=== PATIENT | female | born 1960 | race Caucasian/White ===

== ENCOUNTER → 2017-03-23 | Outpatient (CLI) | payer MEDICARE, OTHER ==
[~2017-03-23] MED LIST: ALPRAZOLAM1 MG PO; AMOXICILLIN500 M1 PO; AUGMENTIN PO; CELEBREX PO; CELEBREX100 MG PO; CLARITIN10 M2 PO; CYMBALTA; DILAUDID2 MG PO; FLEXERIL PO; FLEXERIL10 MG PO; HUMIRA40 MG/0.1 SQ; HYDROCODON-ACE1 EAC5 PO; ILOTYCIN1 GM OS; LEVOXYL50 MC1 PO; LORCET 10/650 T1 TAB PO; LORTAB 10-5001 EACH PO; LORTAB 10/500 T1 TAB PO; LORTAB 7.51 TAB 7.5/ PO; LYRICA PO; MEDROL PO; MONTELUKAST SOD10 MG PO; MULTI-DAY VITAM1 TAB PO; ORUDIS75 M1 PO; PAXIL PO; PAXIL40 MG PO; PERCOCET 5-3251 TAB PO; SEROQUEL50 M1 PO; SEROQUEL50 MG PO; VICODIN 5/500 T1 TAB PO; VICODIN PO; XANAX1 MG PO
--- NOTE | ~2017-03-23 | CT75 ---
[facility] A Service of [facility] & [facility] RADIOLOGY TEXT RESULTS PATIENT: LAURA THOMAS LOCATION: [facility] : 58 UNIT #: [id number] AGE: [address]: Reynaldo Astudillo MD SEX: F ORDER DR: [id number] [facility] [address] [place], [place] [address] [id number] O MR#: [id number] Acc #: [id number] NAME: LAURA THOMAS : 1960 SEX: F STUDY DATE/TIME: 03/23/2017 15:36 UNIT: [facility] ROOM: STUDY DESCRIPTION: CT IAC, Sella, Temporal Bone W Attending Physician: Reynaldo Astudillo M.D. Referring Physician: Reynaldo Astudillo M.D. Ordering Physician: Reynaldo Astudillo M.D. Primary Care Physician: Rosalind Jamil M.D. MEDICAL IMAGING REPORT This report is preliminary unless electronic signature is present EXAM Temporal bone CT with contrast, 03/23/2017 PROCEDURE Axial contrast enhanced temporal bone CT with multiplanar reformats. This CT exam was performed with one or more of the following radiation dose reduction techniques: automatic exposure control, adjustment of mA and/or kV according to patient size, and iterative reconstruction. 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 FINDINGS There are two aneurysms near the ICA terminus both in the general region of the posterior communicator origin, one directed posteroinferiorly about 3.0 mm in size and one directed superolaterally perhaps 4.0 mm or more in size. Neurosurgical evaluation to possibly include catheter angiography recommended. There is probably a small left posterior communicator origin region 2.0-3.0 mm aneurysm as well and a left MCA bifurcation region aneurysm 4.0-5.0 mm in size. Again neurosurgical evaluation is recommended. The right temporal bone itself is normal. The middle ear, mastoids and ossicles are normal and the carotid, jugular and facial canal and labyrinth are normal without abnormal labyrinthine mineralization or perilabyrinthine demineralization. There is no mass. There is a normal right foramen spinosum. [facility] A Service of [facility] & [facility] RADIOLOGY TEXT RESULTS PATIENT: LAURA THOMAS LOCATION: [facility] : 58 UNIT #: [id number] AGE: [address]: Reynaldo Astudillo MD SEX: F ORDER DR: On the left, the carotid and jugular canal and facial canal are normal. The middle ear and mastoids are normally pneumatized and the ossicles are normally formed but there is a soft tissue mass posteriorly. It appears to be contrast enhancing, and measures approximately 6.0 x 6.0 mm on axial images, and 6.0 mm in craniocaudal dimension. It is situated directly abutting the cochlear promontory, but there is no bone erosion or destruction. It encases the incudostapedial joint, and abuts the lower margin of the oval window niche but does not extend to the oval window itself. It also abuts the round window niche but does not extend to the round window. 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 No additional enhancing mass is seen on either side. There is no labyrinthine mineralization or perilabyrinthine demineralization. There is no carotid or jugular or facial nerve dehiscence. IMPRESSION 1. 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 2. The left labyrinth itself is normal and the right temporal bone is normal. 3. Several intracranial aneurysms are seen at least involving the right posterior communicator region, where there are probably two aneurysms, 3.0 and 4.0 mm in size, probably about a 2.0 mm aneurysm in the region of the left posterior communicator and a 4.0-5.0 mm aneurysm in the region of the left MCA. Neurosurgical evaluation is recommended. STAT * RESULT Dictated by... Mikey Calvo M.D. THIS IS AN ELECTRONICALLY VERIFIED REPORT Mikey Calvo M.D. at 03/24/2017 10:23 AM ARUNA/hernan TD: 03/24/2017 08:04 JOB #: [id number] MEDICAL IMAGING REPORT Page 1 of 1 COPY
[2017-03-23 16:11] LABS: POC - CREATININE 0.72 mg/dL (0.44-1.03); POC - GFR >60.0 mL/min (>60)
== END | disposition home or self-care (01) ==
LOC: CCAT 14:46
PROVIDERS: Specialist
DX: H90.42 Sensorineural hearing loss, unilateral, left ear, with unrestricted hearing on the contralateral side (principal); H92.02 Otalgia, left ear; H93.8X2 Other specified disorders of left ear; I67.1 Cerebral aneurysm, nonruptured
CPT/HCPCS: 70481; 82565; Q9967